=== PATIENT | female | born 1990 | race American Indian/Alaskan Native ===

== ENCOUNTER 2016-07-16 13:10 | Emergency (ER) | payer SELFPAY ==
[2016-07-16 14:28] VITALS: BP 127/90
== END 2016-07-16 16:30 | disposition left against medical advice (07) ==
LOC: ED 13:10
DX: R22.0 Localized swelling, mass and lump, head (principal); J45.909 Unspecified asthma, uncomplicated; Z53.21 Procedure and treatment not carried out due to patient leaving prior to being seen by health care provider